=== PATIENT | male | born 1970 | race Caucasian/White ===

== ENCOUNTER 2017-11-21 08:57 | Emergency (ER) | payer BC, MEDICARE ==
[~2017-11-21] VITALS: Ht 175.3 cm; Wt 81.7 kg
[~2017-11-21 08:57] MED LIST: CYCL10 PO; GABA100 PO; Norco 5-325 Ta1 EACH PO
[2017-11-21] MEDS ORDERED: IBUP800 PO (11:19)
== END 2017-11-21 11:23 | disposition home or self-care (01) ==
LOC: ER 08:57
DX: M70.22 Olecranon bursitis, left elbow (principal); F17.210 Nicotine dependence, cigarettes, uncomplicated; Z88.5 Allergy status to narcotic agent; Z79.899 Other long term (current) drug therapy
CPT/HCPCS: 73080; 99283

== ENCOUNTER 2018-01-22 08:18 | Emergency (ER) | payer BC, MEDICARE ==
[~2018-01-22] VITALS: Ht 175.3 cm; Wt 81.7 kg
[~2018-01-22 08:18] MED LIST changes: +IBUP800 PO
[2018-01-22 09:36] LABS: BASOPHILS ABSOLUTE AUTO 0.07 K/mm3 (0.00-0.23); BASOPHILS PERCENT AUTO 1 % (0-2); EOSINOPHILS ABSOLUTE AUTO 0.05 K/mm3 (0.00-0.68); EOSINOPHILS PERCENT AUTO 0 % (0-6); Hematocrit 45.9 % (37.0-53.0); Hemoglobin 16.9 g/dL (13.5-17.5); IMMATURE GRAN ABSOLUTE AUTO 0.06 K/mm3 (0.00-0.10); IMMATURE GRAN PERCENT AUTO 1 % (0-1); LYMPHOCYTES ABSOLUTE AUTO 1.32 K/mm3 (0.84-5.20); LYMPHOCYTES PERCENT AUTO 11 % (21-46); MONOCYTES ABSOLUTE AUTO 0.71 K/mm3 (0.16-1.47); MONOCYTES PERCENT AUTO 6 % (4-13); Mean Corpuscular HGB 33.4 pg (26.0-34.0); Mean Corpuscular HGB Conc 36.8 g/dL (31.5-36.5); Mean Corpuscular Volume 91 fL (80-100); Mean Platelet Volume 10.6 fL (9.1-12.4); NEUTROPHILS ABSOLUTE AUTO 10.23 K/mm3 (1.96-9.15); NEUTROPHILS PERCENT AUTO 82 % (41-73); Platelet Count 242 K/mm3 (150-400); RDW Coefficient Variation 13.1 % (11.7-14.2); RDW Standard Deviation 42.6 fL (35.1-46.3); Red Blood Cell Count 5.06 M/mm3 (4.30-5.90); White Blood Cell Count 12.44 K/mm3 (4.00-11.30)
[2018-01-22 09:44] LABS: Anion Gap 9 mmol/L (6-16); Blood Urea Nitrogen 14 mg/dL (8-24); Bun/Creatinine Ratio 18.8 (12.0-20.0); CO2, Blood 23 mmol/L (21-32); Calcium, Blood 8.8 mg/dL (8.5-10.1); Chloride, Blood 108 mmol/L (98-108); Creatinine, Blood 0.75 mg/dL (0.60-1.20); Glomerular Filtration Rate >60 (60-); Glucose, Blood 148 mg/dL (70-99); Sodium, Blood 140 mmol/L (136-145)
== END 2018-01-22 10:07 | disposition home or self-care (01) ==
LOC: ER 08:18
PROVIDERS: Emergency Medicine
DX: K91.840 Postprocedural hemorrhage of a digestive system organ or structure following a digestive system procedure (principal); F17.210 Nicotine dependence, cigarettes, uncomplicated; Z88.5 Allergy status to narcotic agent; Z79.899 Other long term (current) drug therapy
CPT/HCPCS: 36415; 80048; 85025; 96374; 99284; J3010; J7030

== ENCOUNTER 2022-03-23 12:18 | Emergency (ER) | payer BC, MEDICARE ==
[~2022-03-23] VITALS: Ht 175.3 cm; Wt 93.0 kg
[2022-03-23] MEDS ORDERED: Prednisone20 MG PO (14:13)
== END 2022-03-23 15:20 | disposition home or self-care (01) ==
LOC: ER 12:18
DX: T63.441A Toxic effect of venom of bees, accidental (unintentional), initial encounter (principal); R13.10 Dysphagia, unspecified; R07.89 Other chest pain; L53.9 Erythematous condition, unspecified; H05.229 Edema of unspecified orbit; F17.210 Nicotine dependence, cigarettes, uncomplicated; Z88.5 Allergy status to narcotic agent; Z79.899 Other long term (current) drug therapy; Y92.9 Unspecified place or not applicable
CPT/HCPCS: 36415; J1200; J2405; J2930; J7030

== ENCOUNTER 2024-06-07 07:42 | Day surgery (SDC) | payer BC, MEDICARE ==
[~2024-06-07] VITALS: Ht 175.3 cm; Wt 91.8 kg
[~2024-06-07 07:42] MED LIST changes: +Prednisone20 MG PO
[2024-06-07] MEDS ORDERED: ALLO100 PO (08:06)
[2024-06-07] MEDS ORDERED: ATOR10 PO (08:06)
[2024-06-07] MEDS ORDERED: METF500 (08:07)
[2024-06-07] MEDS ORDERED: Prinivil10 MG PO (08:07)
[2024-06-07] MEDS ORDERED: OMEP20ER PO (08:07)
[2024-06-07] MEDS ORDERED: Lactated Ringer's 1,000 ML IV ONE (08:46)
[2024-06-07] MEDS ORDERED: propofoL 50 ML IV ONE (08:54)
[2024-06-07] MEDS ORDERED: propofoL 20 ML IV ONE (09:27)
[2024-06-07 10:19] VITALS: BP 140/106
== END 2024-06-07 10:08 | disposition home or self-care (01) ==
LOC: ORSCSDS 07:42
PROVIDERS: Surgery
PROC: 0DJD8ZZ Inspection of Lower Intestinal Tract, Via Natural or Artificial Opening Endoscopic (ICD-10-PCS; principal; 2024-06-07 09:00)
DX: Z12.11 Encounter for screening for malignant neoplasm of colon (principal); K64.8 Other hemorrhoids; K64.4 Residual hemorrhoidal skin tags; I10 Essential (primary) hypertension; E78.1 Pure hyperglyceridemia; F32.A Depression, unspecified; Z79.84 Long term (current) use of oral hypoglycemic drugs; Z79.82 Long term (current) use of aspirin; Z79.899 Other long term (current) drug therapy
CPT/HCPCS: 82947; J2704